=== PATIENT | female | born 2000 | race African-American/Black ===

== ENCOUNTER 2018-01-03 23:59 | Emergency (ER) | payer OTHER ==
[2018-01-04 00:56] VITALS: BP 118/60; PULSE 73; TEMP 97.7; BMI 13.8
--- NOTE | 2018-01-04 01:03 | PDOC ---
History of Present Illness - General Chief Complaint: Nausea/Vomiting Stated Complaint: ABD PAIN Time Seen by Provider: 01/04/18 01:02 Past History - Past Medical History Allergies/Adverse Reactions: Allergies Allergy/AdvReac Type Severity Reaction Status Date / Time No Known Allergies Allergy Verified 01/04/18 00:41 Home Medications: Ambulatory Orders Albuterol 0.083% Nebulizer Adriane [Ventolin 0.083%] 1 neb NEB PRN PRN 07/03/12 Asthma: Yes CVA: No COPD: No GI Disorders: Yes (gt, anna-[place] button, FTT) HTN: No Hypercholesterolemia: No - Surgical History Abdominal Surgery: Yes (gastrostomy) - Immunization History Immunization Up to Date: Yes - Suicide/Smoking/Psychosocial Hx Smoking Status: No Smoking History: Never smoked Have you smoked in the past 12 months: No Number of Cigarettes Smoked Daily: 0 Information on smoking cessation initiated: No Hx Alcohol Use: No Drug/Substance Use Hx: No Substance Use Type: None *Physical Exam - Vital Signs Last Vital Signs Temp Pulse Resp BP Pulse Ox 97.7 F 73 18 118/60 100 01/04/18 00:42 01/04/18 00:42 01/04/18 00:42 01/04/18 00:42 01/04/18 00:42
[2018-01-04 01:16] LABS: BASO % 0.5 % (0-2.0); HEMATOCRIT 36.1 % (32.4-45.2); HEMOGLOBIN 12.8 GM/dL (10.7-15.3); MCH 30.2 pg (25.7-33.7); MCHC 35.4 g/dl (32.0-36.0); MEAN CELL VOLUME 85.2 fl (80-96); MEAN PLT VOLUME 9.1 fl (7.5-11.1); MONO % 3.1 % (3.8-10.2); NEUT % 84.4 % (42.8-82.8); PLATELET COUNT 187 K/MM3 (134-434); RBC 4.23 M/mm3 (3.60-5.2); RDW 12.9 % (11.6-15.6); WHITE BLOOD COUNT 8.5 K/mm3 (4.0-10.0)
[2018-01-04 01:27] LABS: URINE APPEARANCE CLEAR; URINE BILIRUBIN NEGATIVE (<2.0 mg/dL); URINE BLOOD NEGATIVE (NEGATIVE); URINE COLOR YELLOW; URINE GLUCOSE (UA) NEGATIVE (NEGATIVE); URINE KETONE TRACE (NEGATIVE); URINE LEUK ESTERASE NEGATIVE (NEGATIVE); URINE NITRITE NEGATIVE (NEGATIVE)
[2018-01-04 01:29] LABS: HCG,QUALITATIVE URINE NEGATIVE
[2018-01-04 01:46] LABS: URINE PROTEIN 1+ (NEGATIVE)
[2018-01-04 01:48] LABS: EPI CELLS RARE /HPF (FEW); URINE MUCUS MANY
[2018-01-04 01:56] LABS: ALBUMIN 4.7 g/dl (3.4-5.0); ANION GAP 9 (8-16); BLOOD UREA NITROGEN 10 mg/dL (7-18); CALCIUM 9.4 mg/dL (8.5-10.1); CHLORIDE 105 mmol/L (98-107); CO2 28 mmol/L (21-32); CREATININE 0.7 mg/dL (0.55-1.02); GLUCOSE,RANDOM 113 mg/dL (74-106); LIPASE 55 U/L (73-393); POTASSIUM 3.7 mmol/L (3.5-5.1); SGOT/AST 14 U/L (15-37); SGPT/ALT 13 U/L (12-78); SODIUM 142 mmol/L (136-145)
[2018-01-04 01:57] LABS: ALK PHOS 56 U/L (45-117); BILIRUBIN,TOTAL 1.4 mg/dL (0.2-1.0); TOT PROT 8.2 g/dl (6.4-8.2)
--- NOTE | 2018-01-04 02:34 | PDOC ---
History of Present Illness - General History Source: Patient Exam Limitations: No Limitations - History of Present Illness Initial Comments: 01/04/18 02:52 Best Contact: Pmhx: Patient was born at 6 months weighing 1 pound and 4 ounces, failure to thrive when she was born, NG tube from to 2 years old: G-tube from 2 years old 26 years old Asthma Pshx: N/A Allergies:NKDA LMP: 01/01/2018 17-year-old female presents to the emergency department with her mother complaining of periumbilical and right lower quadrant abdominal pain 6 hours. Patient states the pain just hurts. Patient denies alleviating or exacerbating factors. Patient denies radiculopathy, fever/chills, nausea/vomiting, chest pain , shortness of breath, flank pains, urinary symptoms: Frequency/urgency/ hesitancy, hematuria. <Zane Jurado - Last Filed: 01/04/18 05:23> <Gretchen Miller - Last Filed: 01/04/18 06:31> - General Chief Complaint: Nausea/Vomiting Stated Complaint: ABD PAIN Time Seen by Provider: 01/04/18 01:02 Past History - Past Medical History Asthma: Yes CVA: No COPD: No GI Disorders: Yes (gt, anna-[place] button, FTT) HTN: No Hypercholesterolemia: No - Surgical History Abdominal Surgery: Yes (gastrostomy) - Immunization History Immunization Up to Date: Yes - Suicide/Smoking/Psychosocial Hx Smoking Status: No Smoking History: Never smoked Have you smoked in the past 12 months: No Number of Cigarettes Smoked Daily: 0 Information on smoking cessation initiated: No Hx Alcohol Use: No Drug/Substance Use Hx: No Substance Use Type: None <Zane Jurado - Last Filed: 01/04/18 05:23> <Gretchen Miller - Last Filed: 01/04/18 06:31> - Past Medical History Allergies/Adverse Reactions: Allergies Allergy/AdvReac Type Severity Reaction Status Date / Time No Known Allergies Allergy Verified 01/04/18 00:41 Home Medications: Ambulatory Orders Albuterol 0.083% Nebulizer Adriane [Ventolin 0.083%] 1 neb NEB PRN PRN 07/03/12 Review of Systems - Review of Systems Able to Perform ROS?: Yes Comments:: 01/04/18 03:03 CONSTITUTIONAL: Absent: fever, chills, diaphoresis, generalized weakness, malaise, loss of appetite HEENT: Absent: rhinorrhea, nasal congestion, throat pain, throat swelling, difficulty swallowing, mouth swelling, ear pain, eye pain, visual Changes CARDIOVASCULAR: Absent: chest pain, loss of consciousness, palpitations, irregular heart rate, peripheral edema RESPIRATORY: Absent: cough, shortness of breath, dyspnea with exertion, orthopnea, wheezing, stridor, hemoptysis GASTROINTESTINAL: +RLQ pain/Periumbilical pain Absent: abdominal distension, nausea, vomiting, diarrhea, constipation, melena, hematochezia GENITOURINARY: Absent: dysuria, frequency, urgency, hesitancy, hematuria, flank pain, genital pain MUSCULOSKELETAL: Absent: myalgia, arthralgia, joint swelling SKIN: Absent: rash, itching, pallor HEMATOLOGIC/IMMUNOLOGIC: Absent: easy bleeding, easy bruising, lymphadenopathy, frequent infections Is the patient limited Nigerian proficient: No <Zane Jurado - Last Filed: 01/04/18 05:23> *Physical Exam - Vital Signs Last Vital Signs Temp Pulse Resp BP Pulse Ox 97.7 F 73 18 118/60 100 01/04/18 00:42 01/04/18 00:42 01/04/18 00:42 01/04/18 00:42 01/04/18 00:42 - Physical Exam Comments: 01/04/18 03:03 GENERAL: Well developed, well nourished. Awake and alert. No acute distress. HEENT: Normocephalic, atraumatic. PERRLA, EOMI. No conjunctival pallor. Sclera are non- icteric. Moist mucous membranes. Oropharynx is clear. NECK: Supple. Full ROM. No JVD. Carotid pulses 2+ and symmetric, without bruits. No thyromegaly. No lymphadenopathy. CARDIOVASCULAR: Regular rate and rhythm. No murmurs, rubs, or gallops. Distal pulses are 2+ and symmetric. PULMONARY: No evidence of respiratory distress. Lungs clear to auscultation bilaterally. No wheezing, rales or rhonchi. ABDOMINAL: +RLQ pain/periumbilical pain on deep palp Soft. Non-distended. No rebound or guarding. No organomegaly. Normoactive bowel sounds. MUSCULOSKELETAL Normal range of motion at all joints. No bony deformities or tenderness. No CVA tenderness. EXTREMITIES: No cyanosis. No clubbing. No edema. No calf tenderness. SKIN: Warm and dry. Normal capillary refill. No rashes. No jaundice. <RhiannonZane - Last Filed: 01/04/18 05:23> - Vital Signs Last Vital Signs Temp Pulse Resp BP Pulse Ox 97.7 F 73 18 118/60 100 01/04/18 00:42 01/04/18 00:42 01/04/18 00:42 01/04/18 00:42 01/04/18 00:42 <Gretchen Miller - Last Filed: 01/04/18 06:31> ED Treatment Course - LABORATORY CBC & Chemistry Diagram: 01/04/18 00:54 01/04/18 00:54 - ADDITIONAL ORDERS Additional order review: Laboratory Results 01/04/18 01/04/18 00:54 00:54 Sodium 142 Potassium 3.7 Chloride 105 Carbon Dioxide 28 Anion Gap 9 BUN 10 Creatinine 0.7 Creat Clearance w eGFR > 60 Random Glucose 113 H Calcium 9.4 Total Bilirubin 1.4 H D AST 14 L ALT 13 Alkaline Phosphatase 56 Total Protein 8.2 Albumin 4.7 Lipase 55 L Urine Color Yellow Urine Appearance Clear Urine pH 6.0 Ur Specific [place] 1.028 Urine Protein 1+ H Urine Glucose (UA) Negative Urine Ketones Trace H Urine Blood Negative Urine Nitrite Negative Urine Bilirubin Negative Urine Urobilinogen 2.0 H Ur Leukocyte Esterase Negative Urine WBC (Auto) 1 Urine RBC (Auto) 1 Ur Epithelial Cells Rare Urine Mucus Many Urine HCG, Qual Negative 01/04/18 00:54 RBC 4.23 MCV 85.2 MCHC 35.4 RDW 12.9 MPV 9.1 Neutrophils % 84.4 H D Lymphocytes % 12.0 D Monocytes % 3.1 L Eosinophils % 0.0 D Basophils % 0.5 - RADIOLOGY Radiograph Interpretation: 01/04/18 03:04 CT abd/pelvis po/iv contrast: No CT evidence of acute appendicitis Moderate stool and gas in the colon <RhiannonZane - Last Filed: 01/04/18 05:23> - LABORATORY CBC & Chemistry Diagram: 01/04/18 00:54 01/04/18 00:54 - ADDITIONAL ORDERS Additional order review: Laboratory Results 01/04/18 01/04/18 00:54 00:54 Sodium 142 Potassium 3.7 Chloride 105 Carbon Dioxide 28 Anion Gap 9 BUN 10 Creatinine 0.7 Creat Clearance w eGFR > 60 Random Glucose 113 H Calcium 9.4 Total Bilirubin 1.4 H D AST 14 L ALT 13 Alkaline Phosphatase 56 Total Protein 8.2 Albumin 4.7 Lipase 55 L Urine Color Yellow Urine Appearance Clear Urine pH 6.0 Ur Specific [place] 1.028 Urine Protein 1+ H Urine Glucose (UA) Negative Urine Ketones Trace H Urine Blood Negative Urine Nitrite Negative Urine Bilirubin Negative Urine Urobilinogen 2.0 H Ur Leukocyte Esterase Negative Urine WBC (Auto) 1 Urine RBC (Auto) 1 Ur Epithelial Cells Rare Urine Mucus Many Urine HCG, Qual Negative 01/04/18 00:54 RBC 4.23 MCV 85.2 MCHC 35.4 RDW 12.9 MPV 9.1 Neutrophils % 84.4 H D Lymphocytes % 12.0 D Monocytes % 3.1 L Eosinophils % 0.0 D Basophils % 0.5 <Gretchen Miller - Last Filed: 01/04/18 06:31> *DC/Admit/Observation/Transfer - Discharge Dispostion Admit: No <Zane Jurado - Last Filed: 01/04/18 05:23> - Attestations Physician Attestion: I reviewed the case with the mid-level practitioner and agree with the mid- level practitioner's assessment, diagnosis and disposition. <Gretchen Miller - Last Filed: 01/04/18 06:31> Diagnosis at time of Disposition: Constipation Qualifiers: Constipation type: unspecified constipation type Qualified Code(s): K59.00 - Constipation, unspecified - Discharge Dispostion Disposition: HOME Condition at time of disposition: Stable - Referrals Referrals: Paresh Yi DO [Staff Physician] - - Patient Instructions Printed Discharge Instructions: DI for Constipation Additional Instructions: Increase fluids Follow up with the tractor operator this week Return to the emergency department for severe/persistent/worsening symptoms Stool softner suggested
== END 2018-01-04 06:03 | disposition home or self-care (01) ==
LOC: JER 23:59
DX: K59.00 Constipation, unspecified (principal)
CPT/HCPCS: 36415; 74177-TC; 80053; 81003; 81015; 83690; 84703; 85025; 99282-25

== ENCOUNTER 2019-02-02 15:00 | Emergency (ER) | payer OTHER | END 2019-02-02 18:00 | disposition left against medical advice (07) | LOC: JER 15:00 ==